=== PATIENT | male | born 1950 | race Two or more races ===

== ENCOUNTER → 2020-02-16 | Day surgery (SDC) | payer OTHER ==
[~2020-02-16] MED LIST: FARXIGA10 MG PO; FENTANYL CITRATE/PF 100MCG/2 ML INJ ONE; GABAPENTIN400 MG PO; METFORMIN HCL850 MG PO; MIDAZOLAM HCL 2 MG/2 ML VIAL ONE; NOVOLIN N100 UNIT/1 SQ; OR PHACO EYE KIT ONE; PREOP PHACO EYE KIT ONE
[2020-02-16 13:45] VITALS: BP 132/68
== END | disposition home or self-care (01) ==
LOC: OR 10:32 → EDSEX 17:00
PROVIDERS: ATTEND Ophthalmology
DX: H25.11 Age-related nuclear cataract, right eye (principal); I49.3 Ventricular premature depolarization; E11.9 Type 2 diabetes mellitus without complications; F41.9 Anxiety disorder, unspecified; Z91.013 Allergy to seafood; Z01.812 Encounter for preprocedural laboratory examination; Z11.59 Encounter for screening for other viral diseases
CPT/HCPCS: 66984; J2250; J3010; U0002; V2632